=== PATIENT | male | born 2000 | race Caucasian/White ===

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

== ENCOUNTER 2021-06-04 20:23 | Emergency (ER) | payer BC, SELFPAY ==
[2021-06-04 20:30] VITALS: BP 135/96; PULSE 76; RESP 16; TEMP 37; O2SAT 99; BMI 18.9
[2021-06-04 20:58] VITALS: BP 135/96; PULSE 76; RESP 16; TEMP 37; O2SAT 99
--- NOTE | 2021-06-04 21:02 | HMH.EDUTC ---
[facility] [place] Impression: Laceration Disposition: Home, Self-Care Condition on Discharge: Good Instructions: Laceration Repair, DI for Laceration Repair -- Simple Additional Instructions: Suture instructions: You have required stitches today. Please read the following instructions so you know how to care for them: 1. Keep wound area dry for the first 24 hours. 2 May clean gently with mild soap and water, after 48 hours to prevent crusting over suture knots. 3. You may shower if your provider gives permission but do not take a bath until the skin is healed.. 4. Never leave a wet dressing or Band-Aid on your stitches as this allows bacteria to reach the area and may cause infection. Band-aids can cause the wound to sweat and not recommended to wear for long periods of time Watch for signs of infection: Increasing redness, tenderness or warmth around the suture site Unusual swelling around the site Appearance of pus around each suture or any red streaks Fever If you develop any of the above signs or symptoms of infection, Follow up with Family Physician immediately 5. Suture removal in _7-10___days 6. Return to [facility] or follow up with family doctor for removal. This can be done by any medical provider during regular hours on Monday through Monday, by appointment. Referrals: Provider,Referral, MD [Primary Care Provider] - As needed Time of Disposition: 21:36 Medical Decision Making - Ej Inquiry Pt receiving controlled substance: No Ej was queried for this patient: No Vital Signs: 06/04/21 20:30 06/04/21 20:58 Temperature 98.6 F 98.6 F Temperature Source Oral Pulse Rate 76 Pulse Rate [Right Brachial] 76 Respiratory Rate 16 16 Blood Pressure 135/96 H Blood Pressure [Right Arm] 135/96 H Blood Pressure Mean [Right Arm] 109 Blood Pressure Source [Right Arm] Automatic Cuff Blood Pressure Position [Right Arm] Sitting 02 Sat by Pulse Oximetry 99 Oxygen Delivery Method Room Air Orders (Tests/Meds): ED MEDICATIONS Discontinued Medications Generic Name Dose Route Start Last Admin Trade Name Freq PRN Reason Stop Dose Admin Tetanus/Reduced Diphtheria/Acell Pertussis 0.5 ml 06/04/21 20:50 06/04/21 20:53 Tet/Diphth/Pert-Adult 0.5ml Syringe IM 06/04/21 20:51 0.5 ml .ONCE ONE Administration [facility] [place] - General Stated complaint: AO04/@1999 left thumb lac Time Seen by Provider: 06/04/21 21:02 Mode of Arrival: Ambulatory Source of Information: Patient Limitations: No Limitations Description of Symptoms (Recalled from Triage Doc. by RN): PATIENT C/O LACERATION TO LEFT THUMB CUTTING POTATOES HEENT Symptoms (Recalled from RN notes): No Resp Symptoms (Recalled from RN notes): No Skin Symptoms (Recalled from RN notes): No MS Symptoms (Recalled from RN notes): No Functional Status (Recalled from RN notes): WNL - History of Present Illness Provider Complaint: Patient states that he was cutting potatoes earlier when the knife slipped and cut his left thumb on the side States that they immediately applied pressure and family brought him in to get it checked - Related Data Home Medications Medication Instructions Recorded Confirmed No Known Home Medications 08/15/17 08/15/17 Allergies Allergy/AdvReac Type Severity Reaction Status Date / Time No Known Allergies Allergy Verified 03/22/17 15:12 - Worker's Comp Is this a Worker's Comp case?: No [facility] History - Hepatitis A Screen Drug use history?: No High risk sexual behaviors?: No History of sexually transmitted infection?: No Currently employed?: No Childcare worker?: No Do you have indoor plumbing?: Yes Do you have electricity?: Yes Attestation statement:: This patient has been screened for Hepatitis A risk factors. I have reviewed the patient's past medical history: Yes Medical History: Denies:: Cancer, Diabetes Mellitus Type 1, Diabetes Mellitus Type 2, MRSA Other Surgeries: Yes: No Previ
== END 2021-06-04 21:46 | disposition home or self-care (01) ==
PROVIDERS: Emergency Provider Nurse Practitioner
DX: S61.012A Laceration without foreign body of left thumb without damage to nail, initial encounter (principal); Z23 Encounter for immunization; W26.0XXA Contact with knife, initial encounter; Y92.019 Unspecified place in single-family (private) house as the place of occurrence of the external cause
CPT/HCPCS: 12001; 90471; 90715; 99213; G0463

== ENCOUNTER 2022-06-11 08:29 | Emergency (ER) | payer BC, SELFPAY ==
[2022-06-11 08:40] VITALS: BP 150/87; PULSE 58; RESP 20; TEMP 36.9; O2SAT 98; BMI 18.2
--- NOTE | 2022-06-11 08:56 | EXP.UTC ---
Discharge Plan Disposition Patient Disposition: Home, Self-Care Condition: Good Prescriptions Prescriptions: New observarzfktiaa-nmznbzdzo-EL [Bromfed DM] 2-30-10 mg/5 mL Syrup 5 ml PO Q6H PRN (Reason: Cough) Qty: 240 0RF ondansetron 4 mg Tablet,Disintegrating 4 mg PO Q8H PRN (Reason: Nausea) Qty: 12 0RF No Action Fortify Probiotic 50 billion cell-50 mg capsule,delayed release(DR/EC) PO ginkgo biloba-Panax ginseng rt 60-100 mg capsule PO ropinirole 0.5 mg tablet 0.5 mg PO HS Rx Instructions: administer 1-3 hours before bedtime lidocaine 5 % adhesive patch,medicated 1 patch topical DAILY Rx Instructions: leave on most painful area for up to 12 hrs diclofenac sodium 1 % gel 2 g topical QID Rx Instructions: apply to single elbow, wrist or hand; for hand includes palm/fingers/back of hand Referrals Follow up/Referrals: Mikael Garcia MD [Primary Care Provider] - See instructions Activity Restrictions/Add. Instructions Additional Instructions/Restrictions: Drink plenty of fluids. Take tylenol or ibuprofen for pain or fever. Take the medications as directed. Follow up with your regular doctor. GO TO THE ER FOR ANY WORSENING SYMPTOMS Quarantine until you know the results of your covid-19 test. Notify your school or workplace of your results and follow their instructions regarding return to work/school. The cough medication (Bromfed dm) will make you drowsy, so don't drive or operate heavy machinery after taking it. Clinical Impressions Clinical Impression: COVID-19, Acute viral syndrome Instructions Patient Instructions: Coronavirus Disease 2019, Preventing the Spread of Coronavirus Discharge Instructions Discharge ED Provider: Sy Orozco [facility] [place] General Stated complaint: home tested covid positive,fever,congestion Mode of Arrival: Ambulatory Source of Information: Patient Limitations: No Limitations Time Seen by Provider: 06/11/22 08:36 Description of Symptoms (Recalled from Triage Doc. by RN): Covid 19 positive home test. JIMENEZ, congetion, sore throat, fever, bodu aches, and diarrhea HEENT Symptoms (Recalled from RN notes): Yes Resp Symptoms (Recalled from RN notes): No Skin Symptoms (Recalled from RN notes): No MS Symptoms (Recalled from RN notes): No Functional Status (Recalled from RN notes): n/a History of Present Illness Provider Complaint: He states that he has felt bad for the past 3 days. He test positive for Covid 19 on a home test today. 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 He c/o JIMENEZ, congetion, sore throat, fever, bodu aches, and diarrhea. Related Data Home Medications Medication Instructions Recorded Confirmed Lacto-B.anim,bifid-inulin 50 cap PO 05/30/22 05/30/22 billion cell-50 mg capsule,delay release (Fortify Probiotic) ginkgo biloba extract-Panax cap PO 05/30/22 05/30/22 ginseng root extract 60 mg-100 mg capsule diclofenac sodium 1 % topical gel 2 g topical QID Pain 06/11/22 06/11/22 lidocaine 5 % topical patch 1 patch topical DAILY . 06/11/22 06/11/22 ropinirole 0.5 mg tablet 0.5 mg PO HS . 06/11/22 06/11/22 Previous Rx's Medication Instructions Recorded zizmqroxlsdlvkm-yayeasgdqldzeef-IC 5 ml PO Q6H PRN Cough #240 mL 06/11/22 2 mg-30 mg-10 mg/5 mL oral syrup (Bromfed DM) ondansetron 4 mg disintegrating 4 mg PO Q8H PRN Nausea #12 tabs 06/11/22 tablet Allergies Allergy/AdvReac Type Severity Reaction Status Date / Time No Known Allergies Allergy Verified 06/11/22 08:52 Worker's Comp Is this a Worker's Comp case?: No [facility] Disclaimer: The information contained in this section may have been updated after the patient was seen, as this information can be updated by other users. Medical History Digestive problems Family History Other FHx: mayra
[2022-06-11 09:36] VITALS: BP 150/87; PULSE 58; RESP 20; TEMP 36.9; O2SAT 98
== END 2022-06-11 09:36 | disposition home or self-care (01) ==
PROVIDERS: Emergency Provider Nurse Practitioner Family; PCP Emergency Medicine
DX: U07.1 COVID-19 (principal); R50.9 Fever, unspecified
CPT/HCPCS: 99212; 99214; C9803; G0463; U0003; U0005

== ENCOUNTER → 2022-06-20 12:49 | Outpatient (CLI) | payer BC, SELFPAY ==
--- NOTE | 2022-06-20 13:09 | MR_ITS ---
FINAL REPORT CLINICAL HISTORY: back pain. low back and right leg pain. symptoms x1year. no injury or trauma FINDINGS: Multiplanar MR imaging of the lumbar spine was performed without contrast. On the sagittal T2-weighted images, no significant disc degeneration is seen. The vertebral alignment is normal. There is no evidence of fracture. No bony mass is identified. The conus has an unremarkable appearance. No significant canal stenosis is identified. T12-L1: No significant central canal stenosis or neural foraminal narrowing. L1-2: No significant central canal stenosis or neuroforaminal narrowing. L2-3: No significant central canal stenosis or neuroforaminal narrowing. L3-4: No significant central canal stenosis or neuroforaminal narrowing. L4-5: There is an annular disc bulge. No significant central canal stenosis or neuroforaminal narrowing. L5-S1: No significant central canal stenosis or neuroforaminal narrowing. IMPRESSION: Mild annular disc bulge at L4-5 without significant central canal stenosis or neuroforaminal narrowing. Reviewed, Interpreted and Dictated by Meek Coyle III, MD Transcribed by Radha Grier Authenticated and [facility]
== END ==
LOC: RAD 12:51
PROVIDERS: PCP Emergency Medicine; Visit Provider Emergency Medicine
DX: M54.9 Dorsalgia, unspecified (principal); M54.50 Low back pain, unspecified
CPT/HCPCS: 72148; 76376

== ENCOUNTER 2022-06-27 10:00 | Outpatient (RCR) | payer BC, SELFPAY ==
--- NOTE | 2022-06-06 12:31 | HMH.PTOPEV ---
PT Outpatient Evaluation Rehab PT Outpatient Evaluation Start: 06/06/22 10:53 Freq: Status: Active Protocol: Document 06/06/22 10:53 JONNATHANGEOVANNY (Rec: 06/06/22 12:31 CIELO [id number]) E-signed By Gloria Alonso, PT Outpatient Therapy Subjective History Subjective History Pt reports that he is having L sided low back pain that began in Nov. Pt reports that he feels a shooting pain that travels down the L side of his leg into the back of his L thigh. Pt reports that he performs a lot of lifting at work and that often creates the shooting pain. Pt reports that he has difficulty laying on his L side when sleeping. Pt describes the leg pain as tingling. Pt reports that he also feels knots throughout his low back. Pt reports that he sometimes feels that his L leg is weak. Pt reports that he is limited to ~1 hour of driving before his leg goes numb. Chief Complaint Pain,Stiff,Weakness Symptom Type Ache,Sharp,Burning,Tingling, Shooting Symptoms Relieved By Rest/Positioning,Heat,OTC Meds ,Prescription Meds Symptoms Aggravated By Supine,Sitting,Standing, Bending/Stooping,Physical Activity,Twisting,Walking, Lifting Prior Functional Limitations None Current Functional Limitations Lifting,Driving,Sleeping, Standing,Sitting,Squatting, Recreation Activity,Walking, Bending/Stooping Symptom Description Constant but Variable Level of pain today (0-10) 6 Pain scale - at its best (0-10) 3 Pain scale - at its worst (0-10) 10 Lumbopelvic Eval Posture Thoracic Spine Posture Standing Position Neutral Lumbar Spine Posture Standing Position Neutral Assistive device Assistive Devices None / NA Palapation tenderness left lumbar spinal tenderness Yes paraspinal tenderness Yes buttock tenderness Yes Lumbar/Sacral Palpation Findings Tenderness,Trigger Point, Muscle Guarding Lumbar/Sacral Palpation Overall Comment TTP thr
== END 2022-06-27 10:05 | disposition home or self-care (01) ==
LOC: PT 10:00
PROVIDERS: PCP Emergency Medicine; Visit Provider Emergency Medicine
DX: M54.9 Dorsalgia, unspecified (principal); M54.16 Radiculopathy, lumbar region
CPT/HCPCS: 97014; 97110; 97140; 97163; G0283

== ENCOUNTER 2023-10-31 16:35 | Emergency (ER) | payer BC, SELFPAY ==
[2023-10-31 17:05] VITALS: BP 141/76; PULSE 56; RESP 16; TEMP 36.8; O2SAT 100; BMI 18.8
--- NOTE | 2023-10-31 17:25 | EXP.UTC ---
Discharge Plan Disposition Patient Disposition: Home, Self-Care Condition: Good Referrals Follow up/Referrals: Asher Simmons DO [Primary Care Provider] - See instructions Activity Restrictions/Add. Instructions Additional Instructions/Restrictions: *Monitor Temp, Over the counter Motrin or Tylenol as directed/as needed Tylenol every 4 hours and Motrin every 6 hours (as long as your family doctor has told you that you can take it) for fever or pain. and straight to ER if unable to lower temp less than 101.0 after medication given *Warm salt water gargles may help to soothe the throat *Throat Lozenges? *Warm fluids like tea with honey may help to soothe the throat? *Sleep elevated *Humidifier/Vaporizer Follow up IMMEDIATELY for new or worsening symptoms or no Noticeable improvement over the next 48-72 hours. 911 for difficulty breathing or swallowing You were tested for today for COVID19 your test result should be back in the next 24 hours, you may check your results on the [facility] [facility] portal they will be available on there Clinical Impressions Clinical Impression: Exposure to COVID-19 virus Stand Alone Forms Stand Alone Forms: Work/School Release Instructions Patient Instructions: COVID-19: Testing and Tracing, DI for COVID-19 (Suspected or Confirmed ) Print Language Print Language: Nam[place]ian Discharge ED Provider: Teetee Angela [facility] [place] HPI General Stated complaint: exp covid- test Mode of Arrival: Ambulatory Source of Information: Patient Limitations: No Limitations Time Seen by Provider: 10/31/23 17:25 Description of Symptoms (Recalled from Triage Doc. by RN): PATIENT C/O SORE THROAT, HEADACHE, CONGESTION, AND BODY ACHES SINCE YESTERDAY MORNING. PATIENT REPORTS A POSITIVE AT HOME COVID TEST HEENT Symptoms (Recalled from RN notes): Yes Resp Symptoms (Recalled from RN notes): No Skin Symptoms (Recalled from RN notes): No MS Symptoms (Recalled from RN notes): No Functional Status (Recalled from RN notes): WNL History of Present Illness Provider Complaint: Patient states he was exposed to COVID by family and now having symptoms and took home COVID test and it was positive so he had to come in and get a test for work and school Related Data Allergies Allergy/AdvReac Type Severity Reaction Status Date / Time No Known Allergies Allergy Verified 06/15/22 09:44 Worker's Comp Is this a Worker's Comp case?: No [facility] Disclaimer: The information contained in this section may have been updated after the patient was seen, as this information can be updated by other users. Medical History (Updated 10/31/23 @ 17:35 by Teetee Angela APRN) History of gastroesophageal reflux (GERD) Digestive problems Family History Other FHx: mental illness RLS (restless legs syndrome) Social History Smoking Status: Never smoker smoking status start date: pt vapes alcohol intake: never current occupational status: employed Travel in the last 8 weeks: None ROS Obtained: Yes All systems reviewed & no additional complaints except as documented and Yes Systems reviewed as appropriate & no additional complaints except as documented Constitutional Constitutional: Reports system reviewed and no additional complaints, except as documented, Reports as per HPI, Reports body ache and Reports chills ENT Ears, Nose, Mouth, and Throat: Reports system reviewed and no additional complaints, except as documented, Reports as per HPI, Reports nasal congestion, Reports nasal discharge and Reports sore throat Cardiovascular Cardiovascular: Reports system reviewed and no additional complaints, except as documented and Reports as per HPI Respiratory Respiratory: Reports system reviewed and no additional complaints, except as documented and Reports as per HPI Physical Exam Gener
[2023-10-31 17:39] VITALS: BP 141/76; PULSE 56; RESP 16; TEMP 36.8; O2SAT 100
== END 2023-10-31 17:41 | disposition home or self-care (01) ==
PROVIDERS: Emergency Provider Nurse Practitioner; PCP Internal Medicine
DX: U07.1 COVID-19 (principal); R51.9 Headache, unspecified; R07.0 Pain in throat
CPT/HCPCS: 87635; 99212; 99213; G0463